=== PATIENT | male | born 1955 | race Caucasian/White ===

== ENCOUNTER 2024-01-24 18:51 | Emergency (ER) | payer MEDICARE, BC ==
[2024-01-24 18:57] VITALS: TEMP 98.2
--- NOTE | 2024-01-24 19:08 | ED ---
Recheck HPI - General Chief Complaint: Recheck/Abnormal Lab/Rx Stated Complaint: high blood pressure Time Seen by Provider: 01/24/24 19:06 Source: patient, RN notes reviewed Mode of arrival: ambulatory Limitations: no limitations - History of Present Illness Initial Comments: 69 female presenting to the ER with a chief complaint of hypertension. Patient is a known medical history of hypertension. She is currently taking hydrochlorothiazide 125 mg once daily and losartan 50 mg twice daily. She states this evening she was feeling great about to go for a walk and noticed a gift a friend gave her that was a blood pressure cuff. She felt guilty for not opening the box already and decided to sit down and take her blood pressure. She states her blood pressure was 190s systolics over 90s diastolic. She denies any current headache, dizziness, lightheadedness, chest pain, shortness of breath or peripheral edema. Patient took medications as prescribed this morning around 11 AM. - Related Data Home Medications Medication Instructions Recorded Confirmed Alpha Lipoic Acid(Unknown Dose 1 cap PO DAILY 01/24/24 01/24/24 Beet Root 1 cap PO DAILY 01/24/24 01/24/24 Cetirizine HCl [Zyrtec] 10 mg PO DAILY 01/24/24 01/24/24 Cranberry(Unknown Dose) 1 cap PO DAILY 01/24/24 01/24/24 Garlic(Unknown Dose) 1 cap PO DAILY 01/24/24 01/24/24 Losartan [Cozaar] 50 mg PO BID 01/24/24 01/24/24 Multivitamins, Thera [Multivitamin 1 tab PO DAILY 01/24/24 01/24/24 (formulary)] Nature's Bounty Hair Regrowth 1 tab PO DAILY 01/24/24 01/24/24 [place](Unknown Dose) 1 tab PO DAILY 01/24/24 01/24/24 Vitamin E (Dl,Tocopheryl Acet) 400 unit PO MOWEFR 01/24/24 01/24/24 [Vitamin E (400 Iu = 180 mg)] hydroCHLOROthiazide 12.5 mg PO DAILY 01/24/24 01/24/24 Allergies Allergy/AdvReac Type Severity Reaction Status Date / Time Sulfa (Sulfonamide Allergy Rash/Hives Verified 01/24/24 20:05 Antibiotics) Review of Systems ROS Statement: Those systems with pertinent positive or pertinent negative responses have been documented in the HPI. ROS Other: All systems not noted in ROS Statement are negative. Past Medical History Past Medical History: Asthma, Hypertension History of Any Multi-Drug Resistant Organisms: None Reported Additional Past Surgical History / Comment(s): retina detachment Past Psychological History: No Psychological Hx Reported Smoking Status: Never smoker Past Alcohol Use History: None Reported Past Drug Use History: None Reported General Exam Limitations: no limitations General appearance: alert, in no apparent distress Respiratory exam: Present: normal lung sounds bilaterally. Absent: respiratory distress, wheezes, rales, rhonchi, stridor Cardiovascular Exam: Present: regular rate, normal rhythm, normal heart sounds. Absent: systolic murmur, diastolic murmur, rubs, gallop, clicks Extremities exam: Present: normal inspection, full ROM, normal capillary refill. Absent: tenderness, pedal edema, joint swelling, calf tenderness Neurological exam: Present: alert, oriented X3, CN II-XII intact Skin exam: Present: warm, dry, intact, normal color. Absent: rash Course Vital Signs 01/24/24 01/24/24 01/24/24 18:53 20:05 20:34 Temperature 98.2 F Pulse Rate 90 73 72 Respiratory 20 16 18 Rate Blood Pressure 206/103 179/95 158/89 O2 Sat by Pulse 98 96 95 Oximetry Medical Decision Making - Medical Decision Making Was pt. sent in by a medical professional or institution (Dr. PA, PUBLIC RELATIONS ASSISTANT, urgent care, hospital, or assisted...) When possible be specific @ -No Did you speak to anyone other than the patient for history (EMS, parent, family, police, friend...)? What history was obtained from this source @ -No Did you review nursing and triage notes (agree or disagree)? Why? @ -I reviewed and agree with nursing and triage notes Were old charts reviewed (outside hosp., previous admission, EMS record, old EKG, old radiological studies, urgent care reports/EKG's, assisted records)? Report findings @ -No old charts were reviewed Differential Diagnosis (chest pain, altered mental status, abdominal pain women, abdominal pain men, vaginal bleeding, weakness, fever, dyspnea, syncope, headache, dizziness, GI bleed, back pain, seizure, CVA, palpatations, mental health, musculoskeletal)? @ -Hypertension, electrolyte abnormality, hypertension emergency, This list is not meant to be all-inclusive EKG interpreted by me (3pts min.). @ -As above X-rays interpreted by me (1pt min.). @ -None done CT interpreted by me (1pt min.). @ -None done U/S interpreted by me (1pt. min.). @ -None done What testing was considered but not performed or refused? (CT, X-rays, U/S, labs)? Why? @ -None What meds were considered but not given or refused? Why? @ -None Did you discuss the management of the patient with other professionals (professionals i.e. Dr., PA, PUBLIC RELATIONS ASSISTANT, lab, RT, psych nurse, social media assistant, carrot tier, teacher, child support case officer, adult protective caseworker)? Give summary @ -No Was smoking cessation discussed for >3mins.? @ -No Was critical care preformed (if so, how long)? @ -No Were there social determinants of health that impacted care today? How? (Ahmet elessness, low income, unemployed, alcoholism, drug addiction, transportation, low edu. Level, literacy, decrease access to med. care, [place] [facility], rehab)? @ -No Was there de-escalation of care discussed even if they declined (Discuss DNR or withdrawal of care, Hospice)? DNR status @ -No What co-morbidities impacted this encounter? (DM, HTN, Smoking, COPD, CAD, Cancer, CVA, ARF, Chemo, Hep., AIDS, mental health diagnosis, sleep apnea, morbid obesity)? @ -Hypertension Was patient admitted / discharged? Hospital course, mention meds given and route, prescriptions, significant lab abnormalities, going to OR and other pertinent info. @ -Discharge. 68-year-old female presenting to the ER with a chief complaint of hypertension. Patient is a known history of hypertension and is currently taking losartan and hydrochlorothiazide. History and physical exam completed. Vitals upon arrival remarkable for a temperature 98.2, heart rate 90, respiratory 20, blood pressure 106/103, oxygen saturation 98% on room air. Patient in no signs of acute distress. Exam unremarkable. Laboratory studies and EKG will be obtained. Patient will receive IV hydralazine for blood pressure control. Laboratory studies unremarkable. EKG showing no evidence of infarct or ischemia. Improvement of blood pressure to 158/89 after medications. Upon reevaluation, patient resting comfortably in exam room. Results discussed with patient, all questions answered. Patient is stable for discharge at this t nelia. Strict return parameters discussed. Patient discharged in stable condition with follow-up to PCP. Patient verbally expressed understanding and agreement with care plan. Case discussed with ED attending, Dr. Blair. Undiagnosed new problem with uncertain prognosis? @ -No Drug Therapy requiring intensive monitoring for toxicity (Heparin, Nitro, Insulin, Cardizem)? @ -No Were any procedures done? @ -No Diagnosis/symptom? @ -Hypertension Acute, or Chronic, or Acute on Chronic? @ -Acute Uncomplicated (without systemic symptoms) or Complicated (systemic symptoms)? @ -Uncomplicated Side effects of treatment? @ -No Exacerbation, Progression, or Severe Exacerbation? @ -No Poses a threat to life or bodily function? How? (Chest pain, [place], [place], pneumonia, PE, COPD, DKA, ARF, appy, cholecystitis, CVA, Diverticulitis, Homicidal, Suicidal, threat to staff... and all critical care pts) @ -No - Lab Data Result diagrams: 01/24/24 19:42 01/24/24 19:42 Lab Results 01/24/24 01/24/24 Range/Units 19:42 19:42 WBC 7.9 (3.8-10.6) k/uL RBC 4.74 (4.30-5.90) m/uL Hgb 13.9 (13.0-17.5) gm/dL Hct 42.3 (39.0-53.0) % MCV 89.2 (80.0-100.0) fL MCH 29.3 (25.0-35.0) pg MCHC 32.9 (31.0-37.0) g/dL RDW 14.4 (11.5-15.5) % Plt Count 256 (150-450) k/uL MPV 8.3 Neutrophils % 56 % Lymphocytes % 27 % Monocytes % 6 % Eosinophils % 8 % Basophils % 0 % Neutrophils # 4.4 (1.3-7.7) k/uL Lymphocytes # 2.1 (1.0-4.8) k/uL Monocytes # 0.5 (0-1.0) k/uL Eosinophils # 0.6 (0-0.7) k/uL Basophils # 0.0 (0-0.2) k/uL Sodium 140 (137-145) mmol/L Potassium 3.7 (3.5-5.1) mmol/L Chloride 108 H (98-107) mmol/L Carbon Dioxide 25 (22-30) mmol/L Anion Gap 7 mmol/L BUN 22 H (9-20) mg/dL Creatinine 0.99 (0.66-1.25) mg/dL Est GFR (CKD-EPI)AfAm 89 (>60 ml/min/1.73 sqM) Est GFR (CKD-EPI)NonAf 77 (>60 ml/min/1.73 sqM) Glucose 88 (74-99) mg/dL Calcium 9.6 (8.4-10.2) mg/dL Total Bilirubin 0.5 (0.2-1.3) mg/dL AST 32 (17-59) U/L ALT 29 (4-49) U/L Alkaline Phosphatase 73 (38-126) U/L Total Protein 7.7 (6.3-8.2) g/dL Albumin 4.6 (3.5-5.0) g/dL - EKG Data -: EKG Interpreted by Me EKG Comments: EKG taken at 19: 28 showing a normal sinus rhythm. Inverted T waves in lead III. No ST segment abnormalities. Ventricular rate 73, TN interval 166, QRS duration 101, QT/QTc 412/439. Disposition Clinical Impression: Hypertension Disposition: HOME SELF-CARE Condition: Stable Instructions (If sedation given, give patient instructions): Hypertension (ED) Additional Instructions: Losartan and hydrochlorothiazide as prescribed. Follow-up with PCP. Return to the ER for any new or worsening concerns. Is patient prescribed a controlled substance at d/c from ED?: No Referrals: Perfecto Yeager DO [Primary Care Provider] - 1-2 days Forms: Area PCPs Time of Disposition: 20:29
[2024-01-24 19:52] LABS: Basophils % (A) 0 %; Eosinophils # (A) 0.6 k/uL (0-0.7); Eosinophils % (A) 8 %; HCT 42.3 % (39.0-53.0); HGB 13.9 gm/dL (13.0-17.5); Lymphocytes # (A) 2.1 k/uL (1.0-4.8); Lymphocytes % (A) 27 %; MCH 29.3 pg (25.0-35.0); MCHC 32.9 g/dL (31.0-37.0); MCV 89.2 fL (80.0-100.0); Mean Platelet Volume 8.3; Monocytes # (A) 0.5 k/uL (0-1.0); Monocytes % (A) 6 %; Neutrophils # (A) 4.4 k/uL (1.3-7.7); Neutrophils % (A) 56 %; Platelet Count 256 k/uL (150-450); RBC 4.74 m/uL (4.30-5.90); RDW 14.4 % (11.5-15.5); WBC 7.9 k/uL (3.8-10.6)
[2024-01-24 20:03] LABS: ALT 29 U/L (4-49); AST 32 U/L (17-59); African American GFR (CKD) 89 (>60 ml/min/1.73 sqM); Albumin 4.6 g/dL (3.5-5.0); Alkaline Phosphatase 73 U/L (38-126); Anion Gap 7 mmol/L; Blood Urea Nitrogen 22 mg/dL (9-20); Calcium 9.6 mg/dL (8.4-10.2); Carbon Dioxide 25 mmol/L (22-30); Chloride 108 mmol/L (98-107); Glucose 88 mg/dL (74-99); Non-African American GFR(CKD) 77 (>60 ml/min/1.73 sqM); Potassium 3.7 mmol/L (3.5-5.1); Sodium 140 mmol/L (137-145); Total Bilirubin 0.5 mg/dL (0.2-1.3); Total Protein 7.7 g/dL (6.3-8.2)
[2024-01-24] MEDS: hydrALAZINE HCL 20 MG/ML 1 ML VIAL IVP STA (20:10)
[2024-01-24 20:34] VITALS: BP 158/89
[2024-01-24 20:35] VITALS: PULSE 72; RESP 18
== END 2024-01-24 20:45 | disposition home or self-care (01) ==
LOC: EC 18:51
CPT/HCPCS: 36415; 80053; 85025; 93005; 96374; 99283